=== PATIENT | male | born 1980 | race Two or more races ===

== ENCOUNTER 2021-10-08 11:07 | Outpatient (CLI) | payer OTHER | END 2021-10-08 14:35 | disposition home or self-care (01) | LOC: TOM 11:07 | PROVIDERS: ATTEND Student in an Organized Health Care Education/Training Program | DX: R82.90 Unspecified abnormal findings in urine (principal); Q43.9 Congenital malformation of intestine, unspecified ==

== ENCOUNTER 2022-03-08 09:15 | Inpatient (IN) | payer OTHER ==
[~2022-03-08] VITALS: Ht 175.3 cm; Wt 78.0 kg
[2022-03-08] MEDS ORDERED: SUDAFED 24-HOU240 MG PO (14:54)
== END 2022-03-15 19:29 | disposition home or self-care (01) | DRG 330 ==
LOC: ADM 09:15 → O/R 03-11 06:19 → SURH 03-11 07:00 → CIR.AMB 03-11 09:15 → EDSTATUS 03-11 09:15 → SURG 03-11 17:11
PROVIDERS: ADMIT Surgery; ATTEND Surgery
PROC: 0DBP4ZZ Excision of Rectum, Percutaneous Endoscopic Approach (ICD-10-PCS; 2022-03-11)
PROC: 0DTN4ZZ Resection of Sigmoid Colon, Percutaneous Endoscopic Approach (ICD-10-PCS; 2022-03-11)
PROC: 07BB4ZZ Excision of Mesenteric Lymphatic, Percutaneous Endoscopic Approach (ICD-10-PCS; 2022-03-11)
PROC: 0T788DZ Dilation of Bilateral Ureters with Intraluminal Device, Via Natural or Artificial Opening Endoscopic (ICD-10-PCS; 2022-03-11)
PROC: 0DJD8ZZ Inspection of Lower Intestinal Tract, Via Natural or Artificial Opening Endoscopic (ICD-10-PCS; 2022-03-11)
PROC: 0D1B4Z4 Bypass Ileum to Cutaneous, Percutaneous Endoscopic Approach (ICD-10-PCS; principal; 2022-03-11 07:00)
DX: K57.20 Diverticulitis of large intestine with perforation and abscess without bleeding (principal); K56.690 Other partial intestinal obstruction; N32.1 Vesicointestinal fistula; R59.0 Localized enlarged lymph nodes

== ENCOUNTER 2022-08-08 09:10 | Inpatient (IN) | payer OTHER ==
[~2022-08-08] VITALS: Ht 175.3 cm; Wt 77.6 kg
[~2022-08-08 09:10] MED LIST: SUDAFED 24-HOU240 MG PO
== END 2022-08-15 15:30 | disposition home or self-care (01) | DRG 348 ==
LOC: SURH 08-12 06:24 → O/R 08-12 06:24 → SURH 08-12 09:15
PROVIDERS: ADMIT Surgery; ATTEND Surgery
PROC: 0WQF4ZZ Repair Abdominal Wall, Percutaneous Endoscopic Approach (ICD-10-PCS; 2022-08-12)
PROC: 0DBB4ZZ Excision of Ileum, Percutaneous Endoscopic Approach (ICD-10-PCS; principal; 2022-08-12 13:30)
DX: Z43.2 Encounter for attention to ileostomy (principal); K57.32 Diverticulitis of large intestine without perforation or abscess without bleeding; N32.1 Vesicointestinal fistula; K43.5 Parastomal hernia without obstruction or gangrene; Z20.822 Contact with and (suspected) exposure to COVID-19